=== PATIENT | female | born 1975 | race Caucasian/White ===

== ENCOUNTER 2017-01-17 06:47 | Inpatient (IN) | payer OTHER ==
[2017-01-16 17:24] VITALS: BMI 39.4
[~2017-01-17 06:47] MED LIST: BUPIVACAINE HCL/PF 0.25% (2.5MG/ML) 10 ML VIAL IJ ONE
--- NOTE | 2017-01-17 07:38 | HP ---
Admitting History and Physical - Admission Chief Complaint: Morbid Obesity History of Present Illness: Patient presents for vertical sleeve gastrectomy for bariatric surgery History Source: Patient Limitations to Obtaining History: No Limitations - Past Medical History Gastrointestinal: Yes: GERD ...LMP: 12/23/16 ...: No Psych: Yes: Depression - Past Surgical History Past Surgical History: Yes: Cholecystectomy, Tubal Ligation - Smoking History Smoking history: Never smoked - Alcohol/Substance Use Hx Alcohol Use: No - Social History ADL: Independent Home Medications - Allergies Allergies/Adverse Reactions: Allergies Allergy/AdvReac Type Severity Reaction Status Date / Time No Known Allergies Allergy Verified 01/16/17 17:17 - Home Medications Home Medications: Ambulatory Orders Fluoxetine HCl [Prozac] 30 mg PO DAILY 01/16/17 Melatonin 5 mg PO DAILY 01/16/17 Family Disease History - Family Disease History Family History: Unremarkable Review of Systems - Review of Systems Constitutional: denies: Chills, Fever HENT: reports: No Symptoms Neck: reports: No Symptoms Cardiovascular: denies: Chest Pain Respiratory: denies: Cough Gastrointestinal: denies: Abdominal Pain Genitourinary: reports: No Symptoms Neurological: denies: Change in LOC Pain Intensity: 0 Physical Examination Vital Signs: Vital Signs Temperature 97.9 F 01/17/17 07:29 Pulse Rate 73 01/17/17 07:29 Respiratory Rate 20 01/17/17 07:29 Blood Pressure 123/68 01/17/17 07:29 O2 Sat by Pulse Oximetry (%) 98 01/17/17 07:28 Constitutional: Yes: Calm, Obese HENT: Yes: WNL Neck: Yes: Supple Cardiovascular: Yes: Regular Rate and Rhythm Respiratory: Yes: Regular Gastrointestinal: Yes: Soft, Abdomen, Obese. No: Tenderness Neurological: Yes: Alert, Oriented Problem List - Problems (1) Morbid obesity due to excess calories Code(s): E66.01 - MORBID (SEVERE) OBESITY DUE TO EXCESS CALORIES Assessment/Plan 41 female for laparoscopic possible open vertical sleeve gasterctomy Risks and benefits explained Understands and agrees
[2017-01-17] MEDS ORDERED: ceFAZolin SODIUM 1 GM VIAL IVPB ONE (08:42)
[2017-01-17] MEDS ORDERED: ePHEDrine SULFATE 50 MG/1 ML AMPULE ONE (09:06)
--- NOTE | 2017-01-17 10:08 | SURG ---
Surgery Manager Engine Note Manager Engine: Sam Parr PA-C Date of Service: 01/17/17 Diagnosis: Morbid obesity Procedure: Laparoscopic vertical sleeve gastrectomy I was present for the entirety of the operative procedure. For further detail, please refer to operative report. Visit type - Case Type Case Type: Scheduled Admission - New patient This patient is new to me today: Yes Date on this admission: 01/17/17
--- NOTE | 2017-01-17 10:09 | OP ---
Operative Note - Note: Operative Date: 01/17/17 Pre-Operative Diagnosis: Morbid Obesity Operation: Laparoscopic vertical sleeve gastrectomy Findings: No leak/obstruction on intraoperative test Post-Operative Diagnosis: Same as Pre-op Surgeon: Enrique Alaniz Cigarette Machine Operator: Sam Parr Anesthesia: General Specimens Removed: Greater curvature of the stomach Estimated Blood Loss (mls): 30 Drains & Tubes with Location: 36 [place] bougie Operative Report Dictated: Yes
[2017-01-17] MEDS ORDERED: HYDROmorphone HCL/PF 1 MG/ML VIAL (FOR PYXIS CHARGING ONLY) ONE (10:12)
[2017-01-17] MEDS ORDERED: ONDANSETRON 4 MG/2 ML VIAL IVPUSH PRN (10:26)
[2017-01-17] MEDS ORDERED: HYDROmorphone HCL CARPU-JECT 2 MG/1 ML DISP.SYRIN ONE (10:27)
[2017-01-17] MEDS: HYDROmorphone HCL CARPU-JECT 1 MG/1 ML DISP.SYRIN IVPUSH PRN ×7 (10:27→11:35)
[2017-01-17] MEDS ORDERED: LACTATED RINGERS SOLUTION 1,000 ML IV SCH (10:30)
[2017-01-17 11:09] LABS: MCH 26.9 pg (25.7-33.7); MEAN CELL VOLUME 81.4 fl (80-96); PLATELET COUNT 250 K/MM3 (134-434); RDW 14.9 % (11.6-15.6); WHITE BLOOD COUNT 15.7 K/mm3 (4.0-10.0)
[2017-01-17 11:41] LABS: ALBUMIN 3.2 g/dl (3.4-5.0); ANION GAP 9 (8-16); CALCIUM 8.1 mg/dL (8.5-10.1); CO2 24 mmol/L (21-32); CREATININE 0.5 mg/dL (0.55-1.02); GLUCOSE,RANDOM 104 mg/dL (74-106); SGOT/AST 65 U/L (15-37); SGPT/ALT 68 U/L (12-78)
[2017-01-17 11:43] LABS: ALK PHOS 96 U/L (45-117); BILIRUBIN,TOTAL 0.6 mg/dL (0.2-1.0)
[2017-01-17] MEDS: SODIUM CHLORIDE 1,000 ML IV SCH ×2 (12:00→20:37)
[2017-01-17] MEDS ORDERED: METOCLOPRAMIDE HCL INJECTION 10 MG/2 ML VIAL ONE (12:12)
[2017-01-17] MEDS: METOCLOPRAMIDE HCL INJECTION 10 MG/2 ML VIAL IVPB SCH ×5 (12:12→23:11)
[2017-01-17] MEDS ORDERED: PROPOFOL 20 ML ONE (12:33)
[2017-01-17] MEDS: HYDROmorphone HCL CARPU-JECT 1 MG/1 ML DISP.SYRIN IVPB PRN ×2 (13:58→21:31)
[2017-01-17] MEDS: ONDANSETRON 4 MG/2 ML VIAL IVPB SCH ×4 (15:37→23:10)
[2017-01-17] MEDS: ACETAMINOPHEN 1000 MG/100 ML VIAL (NON FORMULARY) IVPB SCH ×2 (18:19→23:30)
--- NOTE | 2017-01-17 20:53 | SPEC ---
DATE OF OPERATION: 01/17/2017 SURGEON: Jessica Alaniz MD LAND ACQUISITION SPECIALIST: Sam Parr PA-C PREOPERATIVE DIAGNOSIS: Morbid obesity. POSTOPERATIVE DIAGNOSIS: Morbid obesity. PROCEDURE: Laparoscopic vertical sleeve gastrectomy. SPECIMEN: Greater curvature of the stomach. ESTIMATED BLOOD LOSS: 30 mL DRAINS: None. ANESTHESIA: GET. REASON FOR PROCEDURE: This is a 41-year-old female who presented to the office for weight loss options. She decided to proceed with a laparoscopic/possible open vertical sleeve gastrectomy. RISKS AND BENEFITS: After describing the different options for weight loss management, the patient decided to proceed with a laparoscopic, possible open vertical sleeve gastrectomy. The patient was seen by the respective subspecialties and cleared for surgery. The risks and benefits of the procedure were explained. These included bleeding, infection, hernia, MS, DVT, PE, injury to surrounding structures including the liver, colon, bowel, spleen, esophagus, vessel injury, nerve injury, weight regain, gastric leak, staple line leak, sleeve leak, obstruction, vitamin deficiency, hair loss, and as some of the possible complications. The patient understood and signed informed consent. DESCRIPTION OF PROCEDURE: The patient was placed supine on the operating room table. The patient underwent general endotracheal intubation. A Hylton catheter was inserted. The arms were brought out at 90 degrees and secured. A foot board was placed, and the legs were secured laterally with padding. The abdomen was prepped and draped in the usual sterile fashion. A timeout was performed. An incision was made in the left upper quadrant, and a Veress needle inserted. Pneumoperitoneum was established. Subsequently, the Veress needle was removed, and a 12-mm trocar was placed. The laparoscopic camera was inserted, and inspection of the abdominal cavity was performed. An incision was made in the supraumbilical region, and a 15-mm trocar placed under direct visualization. A 5-mm trocar was then placed in the right upper quadrant, and a 5-mm trocar placed below the left subcostal margin. A stab wound was made in the subxiphoid area, and a Margarita clamp inserted and removed to dilate the tract. A Ariana liver retractor was inserted. The post was secured at the bedside by the nursing staff. The patient was placed in steep reverse Trendelenburg position. The Ariana liver retractor was used to secure the liver towards the anterior abdominal wall. The pylorus was identified and 6 cm proximal to it, the lesser sac was entered using the Ligasure device. All lateral attachments to the greater curvature of the stomach including the short gastric vessels were ligated using the Ligasure device toward the gastrosplenic and gastrophrenic ligaments. Once this was done in its entirety, it was confirmed that all tubes within the nasal or oropharyngeal cavity including a temperature probe was removed by Anesthesia. The bougie was then inserted by Anesthesia. Transection of the stomach was then begun staying adjacent to the bougie but away from the angularis. Transection of the stomach was performed near the portion of the stomach where the lesser sac was entered. Two laparoscopic Endo-ASHWIN black loads were used at this location. Laparoscopic Endo-ASHWIN purple loads were then used for the remainder of the transection until the greater curvature of the stomach was fully transected. This was done staying close to the bougie. Care was taken to stay away from the angle of His cephalad. The staple line was then inspected. Hemostasis was identified. A leak test was then performed. The stomach was clamped distally to the staple line. Irrigation solution was placed in the left upper quadrant, and air insufflated by Anesthesia into the sleeve. No leaks were identified, and no obstruction was identified. This was done throughout the entirety of the staple line. At this point, the irrigation solution was suctioned, and again hemostasis noted. The 15-mm supraumbilical trocar was then removed, and the specimen removed from the site using a sponge stick whitman. The specimen was inspected, and a Veress needle inserted. The specimen insufflated adequately, and no leak was identified. The staple line was noted to be intact. A Lux Padmini device was then used to temporarily close the fascia with a 0 Vicryl suture at this site. The 15-mm trocar was then reinserted, and the 12-mm trocar in the left upper quadrant removed. The fascia at this site was then closed using a Lux Padmini device with a 0 Vicryl suture. Again, hemostasis was noted. The Ariana liver retractor was then removed under direct visualization. Pneumoperitoneum was desufflated, and the fascial sutures were secured. Hemostasis was noted at all incision sites, and Marcaine was injected at all incision sites. All incision sites were closed using 4-0 Biosyn. Sterile dressings were applied. The patient tolerated the procedure well, and was transferred to the recovery room in stable condition with the Hylton catheter intact. The patient was transferred to telemetry for further monitoring. JESSICA ALANIZ M.D. SANDI/[id number]
[2017-01-17] MEDS ORDERED: SODIUM CHLORIDE 1,000 ML IV SCH (22:54)
[2017-01-17] MEDS: FAMOTIDINE 20 MG/50 ML IVPB 50 ML IVPB SCH (23:10)
[2017-01-17] MEDS: ENOXAPARIN NA (PORCINE) 40 MG/0.4 ML DISP.SYRIN SQ SCH (23:10)
[2017-01-18] MEDS: HYDROmorphone HCL CARPU-JECT 1 MG/1 ML DISP.SYRIN IVPB PRN ×3 (01:31→10:50)
[2017-01-18] MEDS: ONDANSETRON 4 MG/2 ML VIAL IVPB SCH ×6 (03:11→22:01)
[2017-01-18] MEDS: METOCLOPRAMIDE HCL INJECTION 10 MG/2 ML VIAL IVPB SCH ×5 (03:11→22:01)
[2017-01-18] MEDS: ACETAMINOPHEN 1000 MG/100 ML VIAL (NON FORMULARY) IVPB SCH (07:06)
[2017-01-18 07:29] LABS: MCH 27.1 pg (25.7-33.7); MCHC 33.3 g/dl (32.0-36.0); MEAN CELL VOLUME 81.2 fl (80-96); MEAN PLT VOLUME 7.5 fl (7.5-11.1); PLATELET COUNT 267 K/MM3 (134-434); RDW 14.5 % (11.6-15.6); WHITE BLOOD COUNT 11.8 K/mm3 (4.0-10.0)
[2017-01-18 08:23] LABS: ALK PHOS 85 U/L (45-117); ANION GAP 10 (8-16); BILIRUBIN,TOTAL 0.5 mg/dL (0.2-1.0); CALCIUM 8.2 mg/dL (8.5-10.1); CO2 22 mmol/L (21-32); CREATININE 0.4 mg/dL (0.55-1.02); GLUCOSE,RANDOM 67 mg/dL (74-106); SGOT/AST 44 U/L (15-37); SGPT/ALT 55 U/L (12-78); TOT PROT 6.5 g/dl (6.4-8.2)
[2017-01-18] MEDS: FAMOTIDINE 20 MG/50 ML IVPB 50 ML IVPB SCH ×2 (09:49→22:02)
[2017-01-18] MEDS: ENOXAPARIN NA (PORCINE) 40 MG/0.4 ML DISP.SYRIN SQ SCH ×2 (09:49→21:53)
[2017-01-18] MEDS ORDERED: SODIUM CHLORIDE 1,000 ML IV SCH (11:15)
[2017-01-18] MEDS: oxyCODONE HCL 5 MG TABLET PO PRN ×2 (14:28→21:50)
[2017-01-18] MEDS: ACETAMINOPHEN 325 MG TABLET (FP) PO PRN ×2 (14:28→21:50)
--- NOTE | 2017-01-18 14:45 | PN ---
Progress Note (short form) - Note Progress Note: POD 1 laparoscopic vertcal sleeve gastrectomt Pain controlled No nausea/vomiting Vital Signs Period Temp Pulse Resp BP Sys/Vela Pulse Ox Last 24 Hr 98.3 F-99.3 F 74-88 18-20 92-149/44-71 98-100 Abd soft, dressings in place CBC, BMP 01/18/17 05:45 01/18/17 05:45 UGI- no leak/obstruction OOB D/C perez Clears Plan for discharge in am Problem List - Problems (1) Morbid obesity due to excess calories Code(s): E66.01 - MORBID (SEVERE) OBESITY DUE TO EXCESS CALORIES
--- NOTE | 2017-01-18 14:53 | DS ---
Physical Examination Vital Signs: Vital Signs Temperature 98.7 F 01/18/17 14:05 Pulse Rate 78 01/18/17 14:05 Respiratory Rate 18 01/18/17 14:05 Blood Pressure 149/71 01/18/17 14:05 O2 Sat by Pulse Oximetry (%) 100 01/17/17 22:00 Constitutional: Yes: Calm HENT: Yes: WNL Neck: Yes: Supple Cardiovascular: Yes: WNL Respiratory: Yes: Regular Gastrointestinal: Yes: Soft Wound/Incision: Yes: Clean/Dry Neurological: Yes: Alert, Oriented Labs: CBC, BMP 01/18/17 05:45 01/18/17 05:45 Discharge Summary Reason For Visit: MORBID (SEVERE) OBESITY DUE TO EXCESS CALORIES Current Active Problems Morbid obesity due to excess calories (Acute) Procedures: Principal: Laparoscopic vertical sleeve gastrectomy Condition: Stable - Instructions Diet, Activity, Other Instructions: [address] [facility] Enrique Alaniz M.D. [address] [place] [address], [address] [facility] [place] [address] Robotic, Bariatric and General Surgery Postoperative Instructions for Bariatric Surgery Activity: Resume normal everyday activity as tolerated. You may walk and climb stairs without any limitation. We encourage you to walk as often as you can Do not lift anything more than 10 pounds for 8 weeks. At that time, you can return to full activity, including the gym, without limitation. Do not drive a motor vehicle while taking prescribes narcotic pain medication. Wound Care: If you have a bandage in place, leave it on for 3 days. At that time you may remove the outer bandage. If there are strips of tape on the skin after removing the outer bandage, leave them in place. They will fall off by themselves. Do not remove them. If there is clear glue on the skin after removing the outer bandage, leave it in place. Do not pick at it or peel it off. You may shower after taking the outer bandage off, 3 days after your surgery. If incisions become red, warm or open, please call the office. Diet: Continue a sugar-free, non-carbonated Clear liquid diet three times a day for the first week-Stage I diet. In addition, you should drink 8 ounces of water every hour. When drinking, sips should be slow and steady, not large and quick. After the first week, call the office to be advanced to the next dietary stage. Do not advance stages until instructed. Your diet will be advanced over the phone each week. Medications/Pain Management: You may resume previous medications unless told otherwise. The pills may be swallowed whole or broken if scored. You may take the prescribed narcotic pain medication as needed. If the narcotic medication is not needed for pain control, you may take Tylenol. Avoid all other pain medications including Advil, Ibuprofen, Motrin, Aspirin, Naprosyn, Aleve, Celebrex. You will receive Pepcid. Please take this twice a day as prescribed. Dizziness,Headaches/Gas Pain: Make sure you are getting enough fluids daily. Patients on diuretics or water pills may need medication adjusted. Some fluids such as broth or Gatorade may help. Gas pains are common in the first few weeks after surgery. At times they can be worse than surgical pain. Walking can help. You can also use Mylanta, Maalox, or Gas-X. Vomiting/Nausea: This may occur if you eat too fast, don't chew, or eat too much. Go back to fluids. If the vomiting or nausea persists, call the office. Constipation/Diarrhea: You may experience a change in bowel habits. Many things affect this, including a decrease in food intake, not enough fluid and taking pain medication. Some people experience diarrhea after the barium swallow in x-ray. If either persist, call the office. Follow up: Call the office at [phone] for an appointment 2 weeks after your surgical procedure. Disposition: HOME - Home Medications Comprehensive Discharge Medication List: Ambulatory Orders Famotidine [Pepcid] 20 mg PO BID #60 tablet 01/17/17 Oxycodone HCl/Acetaminophen [Percocet 5-325 mg Tablet] 1 - 2 tab PO Q6H #28 tab MDD 4 01/17/17
--- NOTE | 2017-01-18 16:17 | PATH ---
Surgical Pathology Report Patient Name: IFEOMA HERNANDEZ [facility]. Rec. #: [id number] /Age/Gender: 1975 (Age: 41) / F Account: [id number] Location: 4 W TELEMETRY U Taken: 01/17/2017 Received: 01/17/2017 Reported: 01/18/2017 Physicians: Enrique Alaniz M.D. Specimen(s) Received GREATER CURVATURE OF STOMACH Clinical History Morbid obesity Final Diagnosis STOMACH, GREATER CURVATURE, SLEEVE GASTRECTOMY: PORTION OF STOMACH WITH MILD CHRONIC GASTRITIS. IMMUNOSTAIN FOR H. PYLORI IS NEGATIVE. Electronically Signed Artem Kahn M.D. Gross Description Received in formalin, labeled "greater curvature of stomach," is a 107 gram, 18.0 x 5.0 x 4.5 cm. portion of stomach with a stapled margin of resection. The serosa is amin-osuna with minimal attached fat. The mucosa is amin-red with focally flattened folds. No mucosal masses are identified. City Planning Engineer sections are submitted in one cassette. /01/17/2017 [facility]2017
[2017-01-19] MEDS: ONDANSETRON 4 MG/2 ML VIAL IVPB SCH ×3 (02:51→09:15)
[2017-01-19] MEDS: METOCLOPRAMIDE HCL INJECTION 10 MG/2 ML VIAL IVPB SCH ×2 (04:05→09:15)
[2017-01-19] MEDS: oxyCODONE HCL 5 MG TABLET PO PRN (08:58)
[2017-01-19] MEDS: ACETAMINOPHEN 325 MG TABLET (FP) PO PRN (08:58)
[2017-01-19] MEDS: ENOXAPARIN NA (PORCINE) 40 MG/0.4 ML DISP.SYRIN SQ SCH (08:59)
[2017-01-19 09:00] VITALS: BP 120/68; PULSE 65; TEMP 98
[2017-01-19] MEDS: FAMOTIDINE 20 MG/50 ML IVPB 50 ML IVPB SCH (09:02)
== END 2017-01-19 09:21 | disposition home or self-care (01) | DRG 403 ==
LOC: JSAMEDAYSX 06:47 → J4W 13:22 → EDSTATUS 15:45
PROVIDERS: ADMIT Surgery; ATTEND Surgery
PROC: 0DB64Z3 Excision of Stomach, Percutaneous Endoscopic Approach, Vertical (ICD-10-PCS; principal; 2017-01-17 08:00)
DX: E66.01 Morbid (severe) obesity due to excess calories (principal); Z68.41 Body mass index [BMI] 40.0-44.9, adult; K21.9 Gastro-esophageal reflux disease without esophagitis; F32.9 Major depressive disorder, single episode, unspecified; G89.29 Other chronic pain; M54.9 Dorsalgia, unspecified
CPT/HCPCS: 36415; 74241-TC; 80053; 84703; 85027; 86850; 86900; 86901; 88305-TC; 94010; 94760